=== PATIENT | female | born 1965 ===

== ENCOUNTER 2016-09-25 09:29 | Outpatient (CLI) | payer OTHER ==
--- NOTE | 2016-09-25 11:25 | Ultrasound Report ---
ULTRASOUND ASPIRATION RIGHT BREAST: 09/25/16 CLINICAL: Right breast asymmetry. COMPARISON: Recent OPI mammogram and right breast ultrasound. FINDINGS: The procedure was explained to the patient and informed consent was obtained. Ultrasound demonstrated an oval smooth cyst with a thin wall at 9 o'clock 5 cm from the nipple. It measures 8 x 6 x 4 mm and correlates with what was described to be at 7 o'clock. No solid mass or shadowing. The skin was cleansed with Betadine and anesthetized with 1% lidocaine. A 20-gauge needle was introduced into the cyst with ultrasound guidance. Less than 1 cc of greenish fluid was removed. The fluid was discarded and not sent to the lab. The patient tolerated the procedure well and there were no apparent complications. A post procedure mammogram shows resolution of the previously described mammographic asymmetry. IMPRESSION: Uncomplicated aspiration of a benign right breast cyst. Recommend routine mammographic screening.
--- NOTE | 2016-09-25 11:27 | Mammography Report ---
RIGHT DIGITAL DIAGNOSTIC MAMMOGRAM : 09/25/16 CLINICAL: Immediately status post aspiration of a cyst at 9 o'clock. COMPARISON:Recent mammogram from a FINDINGS: The previous described asymmetry in the upper-outer breast has resolved. There is minimal residual density from injected lidocaine.No mass, architectural distortion or suspicious calcifications. IMPRESSION: Resolution of the previously described mammographic asymmetry status post aspiration. BI-RADS CATEGORY: 1 - - Negative RECOMMENDATION: Routine mammographic screening. COMMENT: Patient follow-up letters are generated by our [employer] application.
== END 2016-09-25 09:30 | disposition home or self-care (01) ==
LOC: SPVWC 09:29
PROVIDERS: ATTEND Surgery
DX: N63 Unspecified lump in breast (principal); R92.8 Other abnormal and inconclusive findings on diagnostic imaging of breast
CPT/HCPCS: 19000; G0206